=== PATIENT | female | born 2000 | race Caucasian/White ===

== ENCOUNTER 2020-07-22 12:31 | Emergency (ER) | payer MEDICAID ==
--- NOTE | 2020-07-22 14:11 | EDM.PDOC ---
ED HPI GENERAL MEDICAL PROBLEM - General Chief Complaint: General Stated Complaint: PULLED MUSCLE, 28 WEEKS Time Seen by Provider: 07/22/20 12:56 Source of Information: Reports: Patient History Limitations: Reports: No Limitations - History of Present Illness INITIAL COMMENTS - FREE TEXT/NARRATIVE: HISTORY AND PHYSICAL: History of present illness: Patient is a 20-year-old female who presents emergency room today with concern of lower abdominal pain/discomfort in . Patient states she is approximately 28 weeks in gestation and 2 to 3 days ago she was walking down the stairs and was wearing socks on a wooden floor. Patient states she slipped and landed directly on her buttocks. Patient states since she has had lower abdominal pain/pelvic pain. Patient states that her pain has worsened since the fall so she came to the emergency room to be evaluated. She states that she follows with Dr. Kidd at [facility] dates that she has not called the clinic to let them know that she has fallen or having any pain or symptoms. Patient denies fever, chills, chest pain, shortness of breath, or cough. Denies headache, neck stiff ness, change in vision, syncope, or near syncope. Denies nausea, vomiting, diarrhea, constipation, or dysuria. Has not noted any blood in urine or stool. Patient has been eating and drinking appropriately. Review of systems: As per history of present illness and below otherwise all systems reviewed and negative. Past medical history: As per history of present illness and as reviewed below otherwise noncontributory. Surgical history: As per history of present illness and as reviewed below otherwise noncontributory. Social history: See social history for further information Family history: As per history of present illness and as reviewed below otherwise noncontributory. Physical exam: General: Patient is alert, oriented, and in no acute distress. Patient laying comfortably on exam table. Mildly tachycardic otherwise vitally stable and reviewed by me. HEENT: Atraumatic, normocephalic, pupils equal and reactive bilaterally, negative for conjunctival pallor or scleral icterus, mucous membranes moist, TMs normal bilaterally, throat clear, neck supple, nontender, trachea midline. No drooling or trismus noted. No meningeal signs. No hot potato voice noted. Lungs: Clear to auscultation, breath sounds equal bilaterally, chest nontender. Heart: S1S2, regular rate and rhythm without overt murmur Abdomen: Soft, nondistended, mild-moderate suprapubic tenderness to palpation. Negative for masses or hepatosplenomegaly. Negative for costovertebral tenderness. Pelvis: Stable nontender. Genitourinary: Deferred. Rectal: Deferred. Skin: Intact, warm, dry. No lesions or rashes noted. Extremities: Gravid, uterus 8cm above umbilicus. Atraumatic, negative for cords or calf pain. Neurovascular unremarkable. Neuro: Awake, alert, oriented. Cranial nerves II through XII unremarkable. Cerebellum unremarkable. Motor and sensory unremarkable throughout. Exam nonfocal. Notes: heart tones at bedside 155. During nursing triage, patient did not express abdominal pain to nursing staff and was vague about her symptoms on triage. Because of this, patient was in waiting room for 80 minutes prior to being roomed. On my exam, she does have lower abdominal/pelvic pain. I quickly performed a bedside FHT which were 155 and call made to labor and delivery for additional treatment / monitoring as patient is 28 weeks gestation. Voices understanding and is agreeable to plan of care. Denies any further questions or concerns at this time. Diagnostics: None Therapeutics: None Impression: Lower abdominal pain in , 28 weeks Plan: Patient transferred to labor and delivery for additional evaluation/monitoring Definitive disposition and diagnosis as appropriate pending reevaluation and review of above. 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 ED EXAM, GENERAL - Physical Exam Exam: See Below (see dictation) Course - Vital Signs Last Recorded V/S: Last Vital Signs Temp 98.6 F 07/22/20 13:51 Pulse 114 H 07/22/20 13:51 Resp 17 07/22/20 13:51 BP 128/70 07/22/20 13:51 Pulse Ox 96 07/22/20 13:51 Departure - Departure Time of Disposition: 14:30 Disposition: Still A Patient 30 Clinical Impression: Abdominal pain during Qualifiers: Trimester: second trimester Qualified Code(s): O26.892 - Other specified related conditions, second trimester - Discharge Information Referrals: PCP,None [Primary Care Provider] - Forms: ED Department Discharge Additional Instructions: Patient was transferred immediately to labor and delivery for additional monitoring/evaluation Sepsis Event Note (ED) - Evaluation Sepsis Screening Result: No Definite Risk - Focused Exam Vital Signs: Vital Signs Temp Pulse Resp BP Pulse Ox 07/22/20 13:51 98.6 F 114 H 17 128/70 96
== END 2020-07-22 14:08 | disposition still patient (30) ==
LOC: MW.ED 12:31
DX: O99.891 Other specified diseases and conditions complicating pregnancy (principal); R10.30 Lower abdominal pain, unspecified; Z3A.28 28 weeks gestation of pregnancy; Z88.0 Allergy status to penicillin
CPT/HCPCS: 99283

== ENCOUNTER 2020-10-04 16:59 | Inpatient (IN) | payer MEDICAID ==
[2020-10-04] MEDS ORDERED: Sodium Chloride 0.9% 2.5 ML Syringe FLUSH PRN (18:11)
[2020-10-04] MEDS ORDERED: Sodium Chloride 0.9% 10 ML Syringe FLUSH PRN (18:11)
[2020-10-04] MEDS ORDERED: Butorphanol 1 MG/ML SDV IVPUSH PRN (18:11)
[2020-10-04] MEDS ORDERED: Water For Irrigation,Sterile 1,000 ML Container IRR PRN (18:11)
[2020-10-04] MEDS ORDERED: Lidocaine 1% 50 ML MDV INJECT PRN (18:11)
[2020-10-04] MEDS ORDERED: Tranexamic Acid 1,000 MG in Sodium Chloride 0.9% 100 ML IV PRN (18:11)
[2020-10-04] MEDS ORDERED: Nalbuphine 10 MG/1 ML Vial IVPUSH PRN (18:11)
[2020-10-04] MEDS ORDERED: Sodium Chloride 0.9% 10 ML SDV IV PRN (18:11)
[2020-10-04] MEDS ORDERED: Misoprostol 200 MCG Tab PO PRN (18:11)
[2020-10-04] MEDS ORDERED: Methylergonovine 0.2 MG/1 ML Amp IM PRN (18:11)
[2020-10-04] MEDS ORDERED: Carboprost Tromethamine 250 MCG/1 ML Amp IM PRN (18:11)
[2020-10-04] MEDS ORDERED: Oxytocin/0.9 % Sodium Chloride 30 UNIT/500 ML BAG IV SCH ×2 (18:15→18:30)
[2020-10-04] MEDS ORDERED: Misoprostol 25 MCG (1/4 of 100 MCG) Tab VAG PRN (18:21)
[2020-10-04] MEDS ORDERED: Terbutaline 1 MG/ML SDV SUBCUT PRN (18:21)
[2020-10-04] MEDS ORDERED: Vancomycin 1.5 GM in Sodium Chloride 0.9% 500 ML IV SCH (19:00)
[2020-10-04] MEDS: Lactated Ringers 1,000 ML IV SCH (19:05)
[2020-10-04] MEDS: Misoprostol 25 MCG (1/4 of 100 MCG) Tab VAG PRN (20:29)
[2020-10-04] MEDS ORDERED: diphenhydrAMINE 50 MG Cap PO PRN (22:45)
[2020-10-05] MEDS: Lactated Ringers 1,000 ML IV SCH ×4 (00:42→17:44)
[2020-10-05] MEDS: Misoprostol 25 MCG (1/4 of 100 MCG) Tab VAG PRN (04:32)
[2020-10-05] MEDS ORDERED: Oxytocin/0.9 % Sodium Chloride 30 UNIT/500 ML BAG ONE (08:06)
--- NOTE | 2020-10-05 08:40 | PCM.LDHP ---
L&D History of Present Illness - General Date of Service: 10/05/20 Admit Problem/Dx: Patient Status Order with Admit Dx/Problem 10/04/20 18:12 Patient Status [ADT] Routine Admission Diagnosis/Problem Admission Diagnosis/Problem Source of Information: Patient History Limitations: Reports: No Limitations - History of Present Illness Introduction:: 20 year old G1 at 38w3d (CHRISTINE 10/16/2020 by 10w4d US) presented to Labor and Delivery last evening for induction of labor due to IUGR based on abdominal circumference <10%ile. She is resting in bed this morning, reports cramping increasing after 3rd dose of Cytotec. Reports good movement. Denies leaking fluid or vaginal bleeding. - Related Data Allergies/Adverse Reactions: Allergies Allergy/AdvReac Type Severity Reaction Status Date / Time Penicillins Allergy Rash Verified 07/22/20 14:27 Home Medications: Home Meds No122/Iron/Folic Acid [ Multi Tablet] 1 tab PO DAILY 07/22/20 [History] Past Medical History HEENT History: Reports: Impaired Vision Cardiovascular History: Reports: None Respiratory History: Reports: None Gastrointestinal History: Reports: None Genitourinary History: Reports: None CREEL HAND History: Reports: Musculoskeletal History: Reports: Fracture Neurological History: Reports: None Psychiatric History: Reports: Anxiety, Panic Attack Endocrine/Metabolic History: Reports: None Hematologic History: Reports: Anemia Oncologic (Cancer) History: Reports: None Dermatologic History: Reports: None - Infectious Disease History Infectious Disease History: Reports: None - Past Surgical History HEENT Surgical History: Reports: None GI Surgical History: Reports: None Female Surgical History: Reports: None Musculoskeletal Surgical History: Reports: None Social & Family History - Family History Family Medical History: No Pertinent Family History HEENT: Reports: Impaired Vision Cardiac: Reports: None Respiratory: Reports: COPD GI: Reports: None : Reports: None OBGYN: Reports: Musculoskeletal: Reports: Arthritis Neurological: Reports: None Psychiatric: Reports: Anxiety, OCD, Panic Attack Endocrine/Metabolic: Reports: None Hematologic: Reports: None Immunologic: Reports: None Dermatologic: Reports: None Oncologic: Reports: None - Tobacco Use Tobacco Use Status *Q: Former Tobacco User Used Tobacco, but Quit: Yes Month/Year Tobacco Last Used: 04/09 Second Hand Smoke Exposure: No - Caffeine Use Caffeine Use: Reports: Coffee, Soda, Tea - Recreational Drug Use Recreational Drug Use: Yes Drug Use in Last 12 Months: Yes Recreational Drug Type: Reports: Marijuana/Hashish Recreational Drug Use Frequency: Not Used In Over 6 Months H&P Review of Systems - Review of Systems: Review Of Systems: See Below General: Reports: No Symptoms HEENT: Reports: No Symptoms Pulmonary: Reports: No Symptoms Cardiovascular: Reports: No Symptoms Gastrointestinal: Reports: Abdominal Pain Genitourinary: Reports: No Symptoms Musculoskeletal: Reports: Back Pain Skin: Reports: No Symptoms Psychiatric: Reports: No Symptoms Neurological: Reports: No Symptoms Hematologic/Lymphatic: Reports: No Symptoms Immunologic: Reports: No Symptoms L&D Exam - Exam Exam: See Below - Vital Signs Weight: 159 lb - OB Specific Contraction Intensity: Irritability Movement: Active Heart Tones: Present Heart Tones per Min: 140 Heart Rate (FHR) Variability: Moderate (6-25 bmp) Presentation: Vertex Estimated Weight: 2840 grams by ultrasound at 37w3d - Stanton Score Stanton Score Cervix Position: Midposition Stanton Score Consistency: Medium Stanton Score Effacement: 51-70% Stanton Score Dilation: 3-4 cm Stanton Score Infant's Station: -2 Stanton Score Total: 7 - Exam General: Alert Lungs: Normal Respiratory Effort Cardiovascular: Regular Rate GI/Abdominal Exam: Soft, Non-Tender Genitourinary: Normal external exam Back Exam: Full Range of Motion Extremities: Normal Range of Motion, Non-Tender, No Pedal Edema Skin: Warm, Dry, Intact Psychiatric: Normal Mood - Patient Data Lab Results Last 24 hrs: Laboratory Results - last 24 hr 10/04/20 10/04/20 Range/Units 18:00 18:00 WBC 10.44 (4.0-11.0) K/uL RBC 3.52 L (4.30-5.90) M/uL Hgb 9.7 L (12.0-16.0) g/dL Hct 30.1 L (36.0-46.0) % MCV 85.5 (80.0-98.0) fL MCH 27.6 (27.0-32.0) pg MCHC 32.2 (31.0-37.0) g/dL RDW Std Deviation 41.6 (28.0-62.0) fl RDW Coeff of Vashti 13 (11.0-15.0) % Plt Count 292 (150-400) K/uL MPV 11.40 (7.40-12.00) fL Nucleated RBC % 0.0 /100WBC Nucleated RBCs # 0 K/uL Blood Type A POSITIVE Antibody Screen NEGATIVE Result Diagrams: 10/04/20 18:00 Problem List Initiated/Reviewed/Updated: Yes Orders Last 24hrs: Active Orders 24 hr Category Date Time Status Patient Status [ADT] Routine ADT 10/04/20 18:12 Active Bedrest Bathroom Privileges [RC] ASDIRECTED Care 10/04/20 18:21 Active Communication Order [RC] ASDIRECTED Care 10/04/20 18:21 Active Communication Order [RC] ASDIRECTED Care 10/04/20 18:21 Active Communication Order [RC] ASDIRECTED Care 10/04/20 18:21 Active Heart Tones [RC] CONTINUOUS Care 10/04/20 18:12 Active Non Stress Test [RC] PER UNIT ROUTINE Care 10/04/20 18:12 Active May Shower [RC] ASDIRECTED Care 10/04/20 18:12 Active Notify Provider [RC] PRN Care 10/04/20 18:12 Active Notify Provider [RC] PRN Care 10/04/20 18:21 Active Notify Provider [RC] PRN Care 10/04/20 18:21 Active Notify Provider [RC] STAT Care 10/04/20 18:21 Active Up ad Jojo [RC] ASDIRECTED Care 10/04/20 18:12 Active Vaginal Exam [RC] PRN Care 10/04/20 18:12 Active Vaginal Exam [RC] PRN Care 10/04/20 18:21 Active Vital Signs [RC] PER UNIT ROUTINE Care 10/04/20 18:12 Active Vital Signs [RC] PER UNIT ROUTINE Care 10/04/20 18:21 Active Regular Diet [DIET] Diet 10/04/20 Dinner Active RPR (SYPHILIS SERO) W/ RFLX [REF] Routine Lab 10/04/20 18:00 Received Butorphanol [Stadol] Med 10/04/20 18:11 Active 1 mg IVPUSH Q1H PRN Carboprost Tromethamine [Hemabate DS] Med 10/04/20 18:11 Active 250 mcg IM ASDIRECTED PRN Lactated Ringers [Ringers, Lactated] 1,000 ml Med 10/04/20 18:15 Active IV ASDIRECTED Lidocaine 1% [Xylocaine 1%] Med 10/04/20 18:11 Active 50 ml INJECT ONETIME PRN Methylergonovine [Methergine] Med 10/04/20 18:11 Active 0.2 mg IM ASDIRECTED PRN Nalbuphine [Nubain] Med 10/04/20 18:11 Active 10 mg IVPUSH Q1H PRN Oxytocin/0.9 % Sodium Chloride [Oxytocin 30 Unit/500 ML Med 10/04/20 18:15 Active -NS] 30 unit in 500 ml IV TITRATE Oxytocin/0.9 % Sodium Chloride [Oxytocin 30 Unit/500 ML Med 10/04/20 18:30 Active -NS] 30 unit in 500 ml IV TITRATE Pharmacy to Dose - Vancomycin Med 10/04/20 18:30 Active 1 dose .XX Q8H Sodium Chloride 0.9% [Normal Saline] Med 10/04/20 18:11 Active 10 ml IV ASDIRECTED PRN Sodium Chloride 0.9% [Saline Flush] Med 10/04/20 18:11 Active 10 ml FLUSH ASDIRECTED PRN Sodium Chloride 0.9% [Saline Flush] Med 10/04/20 18:11 Active 2.5 ml FLUSH ASDIRECTED PRN Terbutaline [Brethine] Med 10/04/20 18:21 Active 0.25 mg SUBCUT ASDIRECTED PRN Tranexamic Acid [Cyklokapron] 1,000 mg Med 10/04/20 18:11 Active Sodium Chloride 0.9% [Normal Saline] 100 ml IV ONETIME Vancomycin 1.5 gm Med 10/05/20 04:30 Active Sodium Chloride 0.9% [Normal Saline] 500 ml IV Q24H Water For Irrigation,Sterile [Sterile Water for Med 10/04/20 18:11 Active Irrigation] 1,000 ml IRR ASDIRECTED PRN diphenhydrAMINE [Benadryl] Med 10/04/20 22:45 Active 50 mg PO BEDTIME PRN miSOPROStoL [Cytotec] Med 10/04/20 18:11 Active 200 mcg PO ONETIME PRN miSOPROStoL [Cytotec] Med 10/04/20 18:21 Active 25 mcg VAG ONETIME PRN miSOPROStoL [Cytotec] Med 10/04/20 18:21 Active 25 mcg VAG Q4H PRN Scalp Electrode [WOMSER] Per Unit Routine Oth 10/04/20 18:12 Ordered Medication Administration Instruction [OM.PC] Q3H Oth 10/04/20 18:30 Ordered Peripheral IV Insertion Adult [OM.PC] Routine Oth 10/04/20 18:12 Ordered Resuscitation Status Routine Resus Stat 10/04/20 18:11 Ordered Medication Orders Butorphanol Tartrate (Butorphanol 1 Mg/Ml Sdv) 1 mg IVPUSH Q1H PRN PRN Reason: Pain Carboprost Tromethamine (Carboprost Tromethamine 250 Mcg/1 Ml Amp) 250 mcg IM ASDIRECTED PRN PRN Reason: Post Hemorrhage Diphenhydramine HCl (Diphenhydramine 50 Mg Cap) 50 mg PO BEDTIME PRN PRN Reason: Itching Last Admin: 10/04/20 22:59 Dose: 50 mg Documented by: RAJEEV Cosigned by: YANIRA Oxytocin/Sodium Chloride (Oxytocin 30 Unit/500 Ml-Ns) 30 unit in 500 mls @ 500 mls/hr IV TITRATE BREANNA Tranexamic Acid 1,000 mg/ (Sodium Chloride) 110 mls @ 660 mls/hr IV ONETIME PRN PRN Reason: Bleeding Lactated Ringer's (Ringers, Lactated) 1,000 mls @ 150 mls/hr IV ASDIRECTED BREANNA Last Admin: 10/05/20 00:42 Dose: 150 mls/hr Documented by: RAJEEV Cosigned by: BOLSSAC Infusion: 10/04/20 20:34 Dose: 150 mls/hr Documented by: RAJEEV Cosigned by: TERRELLSSAC Infusion: 10/04/20 20:00 Dose: 150 mls/hr Documented by: RAJEEV Cosigned by: YANIRA Admin: 10/04/20 19:05 Dose: 999 mls/hr Documented by: AL Oxytocin/Sodium Chloride (Oxytocin 30 Unit/500 Ml-Ns) 30 unit in 500 mls @ 2 mls/hr IV TITRATE BREANNA; Protocol Vancomycin HCl 1.5 gm/ Sodium (Chloride) 500 mls @ 333.333 mls/hr IV Q24H BREANNA Lidocaine HCl (Lidocaine 1% 50 Ml Mdv) 50 ml INJECT ONETIME PRN PRN Reason: Laceration repair Methylergonovine Maleate (Methylergonovine 0.2 Mg/1 Ml Amp) 0.2 mg IM ASDIRECTED PRN PRN Reason: Post Hemorrhage Misoprostol (Misoprostol 200 Mcg Tab) 200 mcg PO ONETIME PRN PRN Reason: Post Hemorrhage Misoprostol (Misoprostol 25 Mcg (1/4 Of 100 Mcg) Tab) 25 mcg VAG ONETIME PRN PRN Reason: Cervical Ripening Last Admin: 10/05/20 04:32 Dose: 25 mcg Documented by: RAJEEV Cosigned by: YANIRA Admin: 10/04/20 20:29 Dose: 25 mcg Documented by: YANIRA Misoprostol (Misoprostol 25 Mcg (1/4 Of 100 Mcg) Tab) 25 mcg VAG Q4H PRN PRN Reason: Cervical Ripening Last Admin: 10/05/20 00:39 Dose: 25 mcg Documented by: RAJEEV Cosigned by: YANIRA Nalbuphine HCl (Nalbuphine 10 Mg/1 Ml Vial) 10 mg IVPUSH Q1H PRN PRN Reason: Pain (severe 7-10) Sodium Chloride (Sodium Chloride 0.9% 10 Ml Syringe) 10 ml FLUSH ASDIRECTED PRN PRN Reason: Keep Vein Open Sodium Chloride (Sodium Chloride 0.9% 2.5 Ml Syringe) 2.5 ml FLUSH ASDIRECTED PRN PRN Reason: Keep Vein Open Sodium Chloride (Sodium Chloride 0.9% 10 Ml Sdv) 10 ml IV ASDIRECTED PRN PRN Reason: IV Use Sterile Water (Water For Irrigation,Sterile 1,000 Ml Container) 1,000 ml IRR ASDIRECTED PRN PRN Reason: delivery Terbutaline Sulfate (Terbutaline 1 Mg/Ml Sdv) 0.25 mg SUBCUT ASDIRECTED PRN PRN Reason: Tacysystole Vancomycin HCl (Pharmacy To Dose - Vancomycin) 1 dose .XX Q8H [facility] Assessment/Plan Comment:: 20 year old G1 at 38w3d (CHRISTINE 10/16/2020 by 10w4d US) for induction of labor due to IUGR * Rh positive, rubella immune * GBS positive with allergy to Penicillin (rash), resistant to clindamycin; reactive to IV vancomycin. Will hold AROM until closer to active labor. * May receive epidural PRN pain * s/p 3 doses of Cytotec * Will initiate Pitocin for labor augmentation
[2020-10-05] MEDS ORDERED: fentaNYL 100 MCG/2 ML SDV ONE (12:22)
[2020-10-05] MEDS ORDERED: Bupivicaine/fentaNYL/NS 250 ML ONE (12:23)
--- NOTE | 2020-10-05 12:45 | PCM.PREANE ---
Preanesthetic Assessment - Anesthesia/Transfusion/Family Hx Anesthesia History: No Prior Anesthesia Family History of Anesthesia Reaction: No Transfusion History: No Prior Transfusion(s) Intubation History: Unknown - Review of Systems General: No Symptoms Pulmonary: No Symptoms Cardiovascular: No Symptoms Gastrointestinal: Abdominal Pain (labor pain) Neurological: No Symptoms Other: Reports: None - Physical Assessment Height: 5 ft 6 in Weight: 72.121 kg ASA Class: 2 Mental Status: Alert & Oriented x3 Airway Class: Mallampati = 1 Dentition: Reports: Normal Dentition Thyro-Mental Finger Breadths: 3 Mouth Opening Finger Breadths: 2 ROM/Head Extension: Full Lungs: Clear to Auscultation, Normal Respiratory Effort Cardiovascular: Regular Rate, Regular Rhythm - Lab Values: Laboratory Last Values WBC 10.44 K/uL (4.0-11.0) 10/04/20 18:00 RBC 3.52 M/uL (4.30-5.90) L 10/04/20 18:00 Hgb 9.7 g/dL (12.0-16.0) L 10/04/20 18:00 Hct 30.1 % (36.0-46.0) L 10/04/20 18:00 MCV 85.5 fL (80.0-98.0) 10/04/20 18:00 MCH 27.6 pg (27.0-32.0) 10/04/20 18:00 MCHC 32.2 g/dL (31.0-37.0) 10/04/20 18:00 RDW Std Deviation 41.6 fl (28.0-62.0) 10/04/20 18:00 RDW Coeff of Vashti 13 % (11.0-15.0) 10/04/20 18:00 Plt Count 292 K/uL (150-400) 10/04/20 18:00 MPV 11.40 fL (7.40-12.00) 10/04/20 18:00 Nucleated RBC % 0.0 /100WBC 10/04/20 18:00 Nucleated RBCs # 0 K/uL 10/04/20 18:00 Blood Type A POSITIVE 10/04/20 18:00 Antibody Screen NEGATIVE 10/04/20 18:00 - Allergies Allergies/Adverse Reactions: Allergies Allergy/AdvReac Type Severity Reaction Status Date / Time Penicillins Allergy Rash Verified 07/22/20 14:27 - Blood Blood Available: No - Anesthesia Plan Pre-Op Medication Ordered: None - Acknowledgements Anesthesia Type Planned: Epidural Pt an Appropriate Candidate for the Planned Anesthesia: Yes Alternatives and Risks of Anesthesia Discussed w Pt/Guardian: Yes Pt/Guardian Understands and Agrees with Anesthesia Plan: Yes PreAnesthesia Questionnaire HEENT History: Reports: Impaired Vision Cardiovascular History: Reports: None Respiratory History: Reports: None Gastrointestinal History: Reports: None Genitourinary History: Reports: None 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 History: Reports: Fracture Neurological History: Reports: None Psychiatric History: Reports: Anxiety, Panic Attack Endocrine/Metabolic History: Reports: None Hematologic History: Reports: Anemia Oncologic (Cancer) History: Reports: None Dermatologic History: Reports: None - Infectious Disease History Infectious Disease History: Reports: None - Past Surgical History HEENT Surgical History: Reports: None GI Surgical History: Reports: None Female Surgical History: Reports: None Musculoskeletal Surgical History: Reports: None - SUBSTANCE USE Tobacco Use Status *Q: Former Tobacco User Tobacco Use Within Last Twelve Months: Vaping Second Hand Smoke Exposure: No Recreational Drug Use History: Yes Recreational Drug Type: Reports: Marijuana/Hashish - HOME MEDS Home Medications: Home Meds No122/Iron/Folic Acid [ Multi Tablet] 1 tab PO DAILY 07/22/20 [History] - CURRENT (IN HOUSE) MEDS Current Meds: Current Medications Butorphanol Tartrate (Butorphanol 1 Mg/Ml Sdv) 1 mg IVPUSH Q1H PRN PRN Reason: Pain Carboprost Tromethamine (Carboprost Tromethamine 250 Mcg/1 Ml Amp) 250 mcg IM ASDIRECTED PRN PRN Reason: Post Hemorrhage Diphenhydramine HCl (Diphenhydramine 50 Mg Cap) 50 mg PO BEDTIME PRN PRN Reason: Itching Last Admin: 10/04/20 22:59 Dose: 50 mg Documented by: Oxytocin/Sodium Chloride (Oxytocin 30 Unit/500 Ml-Ns) 30 unit in 500 mls @ 500 mls/hr IV TITRATE BREANNA Tranexamic Acid 1,000 mg/ (Sodium Chloride) 110 mls @ 660 mls/hr IV ONETIME PRN PRN Reason: Bleeding Lactated Ringer's (Ringers, Lactated) 1,000 mls @ 150 mls/hr IV ASDIRECTED BREANNA Last Admin: 10/05/20 11:59 Dose: 999 mls/hr Documented by: Oxytocin/Sodium Chloride (Oxytocin 30 Unit/500 Ml-Ns) 30 unit in 500 mls @ 2 mls/hr IV TITRATE [facility]; Protocol Last Titration: 10/05/20 10:50 Dose: 8 munits/min, 8 mls/hr Documented by: Vancomycin HCl 1.5 gm/ Sodium (Chloride) 500 mls @ 333.333 mls/hr IV Q24H [facility] Lidocaine HCl (Lidocaine 1% 50 Ml Mdv) 50 ml INJECT ONETIME PRN PRN Reason: Laceration repair Methylergonovine Maleate (Methylergonovine 0.2 Mg/1 Ml Amp) 0.2 mg IM ASDIRECTED PRN PRN Reason: Post Hemorrhage Misoprostol (Misoprostol 200 Mcg Tab) 200 mcg PO ONETIME PRN PRN Reason: Post Hemorrhage Misoprostol (Misoprostol 25 Mcg (1/4 Of 100 Mcg) Tab) 25 mcg VAG ONETIME PRN PRN Reason: Cervical Ripening Last Admin: 10/05/20 04:32 Dose: 25 mcg Documented by: Misoprostol (Misoprostol 25 Mcg (1/4 Of 100 Mcg) Tab) 25 mcg VAG Q4H PRN PRN Reason: Cervical Ripening Last Admin: 10/05/20 00:39 Dose: 25 mcg Documented by: Nalbuphine HCl (Nalbuphine 10 Mg/1 Ml Vial) 10 mg IVPUSH Q1H PRN PRN Reason: Pain (severe 7-10) Sodium Chloride (Sodium Chloride 0.9% 10 Ml Syringe) 10 ml FLUSH ASDIRECTED PRN PRN Reason: Keep Vein Open Sodium Chloride (Sodium Chloride 0.9% 2.5 Ml Syringe) 2.5 ml FLUSH ASDIRECTED PRN PRN Reason: Keep Vein Open Sodium Chloride (Sodium Chloride 0.9% 10 Ml Sdv) 10 ml IV ASDIRECTED PRN PRN Reason: IV Use Sterile Water (Water For Irrigation,Sterile 1,000 Ml Container) 1,000 ml IRR ASDIRECTED PRN PRN Reason: delivery Terbutaline Sulfate (Terbutaline 1 Mg/Ml Sdv) 0.25 mg SUBCUT ASDIRECTED PRN PRN Reason: Tacysystole Vancomycin HCl (Pharmacy To Dose - Vancomycin) 1 dose .XX Q8H [facility] Discontinued Medications Fentanyl (Fentanyl 100 Mcg/2 Ml Sdv) Confirm Administered Dose 100 mcg .ROUTE .STK-MED ONE Stop: 10/05/20 12:23 Vancomycin HCl 1 gm/ Sodium (Chloride) 250 mls @ 166.667 mls/hr IV Q8H [facility] Vancomycin HCl 1.5 gm/ Sodium (Chloride) 500 mls @ 333.333 mls/hr IV Q8H [facility] Vancomycin HCl 1.5 gm/ Sodium (Chloride) 250 mls @ 166.667 mls/hr IV Q8H [facility] Stop: 10/04/20 22:44 Last Admin: 10/04/20 21:46 Dose: 166.667 mls/hr Documented by: Oxytocin/Sodium Chloride (Oxytocin 30 Unit/500 Ml-Ns) Confirm Administered Dose 30 unit in 500 mls @ as directed .ROUTE .STK-MED ONE Stop: 10/05/20 08:07 Fentanyl/Bupivacaine HCl (Fentanyl/Bupivacaine/Ns 2 Mcg-0.125% 250 Ml) Confirm Administered Dose 250 mls @ as directed .ROUTE .STK-MED ONE Stop: 10/05/20 12:24
[2020-10-05] MEDS ORDERED: Lidocaine 1% 50 ML MDV ONE (18:30)
[2020-10-05] MEDS ORDERED: Bisacodyl 10 MG Supp RECTAL PRN (19:05)
[2020-10-05] MEDS ORDERED: oxyCODONE 5 MG Tab PO PRN (19:05)
[2020-10-05] MEDS ORDERED: Acetaminophen 500 MG Tab PO PRN ×2 (19:05)
[2020-10-05] MEDS ORDERED: Benzocaine/Menthol 20%-0.5% Spray 78 GM Cannister TOP PRN (19:05)
[2020-10-05] MEDS ORDERED: Ibuprofen 400 MG Tab PO PRN (19:05)
[2020-10-05] MEDS ORDERED: Witch Hazel Medicated Pads 40/Jar TOP PRN (19:05)
[2020-10-05] MEDS ORDERED: Lanolin 100% Cream 7 GM Tube TOP PRN (19:05)
[2020-10-05] MEDS: Docusate Sodium 100 MG Cap PO PRN (20:52)
--- NOTE | 2020-10-05 22:45 | OR ---
SURGEON: Jun Thomas MD DATE OF PROCEDURE: 10/05/2020 INDICATION FOR PROCEDURE: A 20-year-old, G1, P0, at 38 weeks and 3 days, admitted for induction of labor due to IUGR. The baby had abdominal circumference was less than 4th percentile. She had weekly testing with umbilical artery Dopplers and BPP which was reassuring. She is GBS positive, which is resistant to clindamycin. She has allergies to penicillin. She received the 1st dose of vancomycin for GBS prophylaxis, but she had a reaction to vancomycin with a diffuse rash. Therefore, she did not receive any additional doses. The rash did improve with some Benadryl and hydration. She received 3 doses of Cytotec for induction of labor. She was 3 cm and pitocin was started. She received an epidural with good pain control. She had intermittent Cat 2 tracing with late decels, which responded after pit rest and repositioning. She continued to make cervical change and became fully dilated. She began pushing with contractions. PREOPERATIVE DIAGNOSES: 1. Carrasco intrauterine at 38 weeks and 3 days. 2. Intrauterine growth restriction. POSTOPERATIVE DIAGNOSES: 1. Carrasco intrauterine at 38 weeks and 3 days. 2. Intrauterine growth restriction. PROCEDURES PERFORMED: Normal spontaneous vaginal delivery, repair of right mediolateral episiotomy. ANESTHESIOLOGIST: Dr. Samy Baca. ANESTHESIA: Epidural. FINDINGS: Viable male infant, score of 6 and 9, weight of 2530g. Loose nuchal cord x1. ESTIMATED BLOOD LOSS: 250 mL. DESCRIPTION OF PROCEDURE: The patient pushed with contractions for approximately 30 minutes. The head was , however, there was a period of bradycardia with heart rate of 90s lasting about 5 minutes. In order to facilitate the delivery, a right mediolateral episiotomy was made. The head delivered with next push in occiput anterior position, restituted ROT. Anterior shoulder delivered easily followed by posterior shoulder and remaining body. Loose nuchal cord was reduced after delivery. The baby was placed on maternal chest and evaluated by awaiting nursery staff. The baby was initially pale and did not cry, but was moving all extremities. After resuscitation, the baby did began to turn pink and cry vigorously. The umbilical cord gases were obtained. The placenta was removed with gentle traction on the umbilical cord. It was examined and found to be intact with 3- vessel cord. It was sent to pathology. Perineum was examined and she had a second-degree laceration from the episiotomy. She did not have complete pain control, 10 mL of 1% lidocaine with epi was injected for local anesthesia. The laceration was repaired with 3-0 Vicryl in usual fashion. Hemostasis was confirmed. Fundal massage was performed. The uterus was firm and below the umbilicus and the bleeding was light. The patient tolerated the procedure well, was given care instructions. АНДРЕЙ RICHARD /[id number] MTDD
--- NOTE | 2020-10-05 23:49 | PCM48HPAN ---
Post Anesthesia Note - EVALUATION WITHIN 48HRS OF ANESTHETIC Vital Signs in Normal Range: Yes Patient Participated in Evaluation: Yes Respiratory Function Stable: Yes Airway Patent: Yes Cardiovascular Function Stable: Yes Hydration Status Stable: Yes Pain Control Satisfactory: Yes Nausea and Vomiting Control Satisfactory: Yes Mental Status Recovered: Yes - COMMENTS/OBSERVATIONS Free Text/Narrative:: Sitting up eating and denies any complaints at this time.
--- NOTE | 2020-10-06 08:05 | PCM.PNPP ---
- General Info Date of Service: 10/06/20 Admission Dx/Problem (Free Text): Patient Status Order with Admit Dx/Problem 10/04/20 18:12 Patient Status [ADT] Routine Admission Diagnosis/Problem Admission Diagnosis/Problem Subjective Update: Ambulating about room during rounds. Reports pain well controlled with Ibuprofen. Lochia decreasing. Ambulating and voiding without difficulty. Tolerating regular diet. Has attempted but has a poor latch. Will work on pumping today. Denies lightheadedness, dizziness, palpitations, SOA or CP. - General Info Date of Service: 10/06/20 - Patient Data Vital Signs - Most Recent: Last Vital Signs Temp 98.6 F 10/06/20 04:00 Pulse 86 10/06/20 04:00 Resp 16 10/06/20 04:00 BP 128/57 L 10/06/20 04:00 Pulse Ox 96 10/06/20 04:00 Weight - Most Recent: 159 lb Lab Results - Last 24 Hours: Laboratory Results - last 24 hr 10/05/20 10/05/20 10/06/20 Range/Units 18:21 18:21 05:36 Hgb 9.3 L (12.0-16.0) g/dL Hct 28.5 L (36.0-46.0) % Cord ABG pH 7.182 (7.18-7.38) Cord ABG Base Excess -7 (-10--2) Cord VBG pH 7.220 L (7.25-7.45) Cord VBG Base Excess -6 (-10--2) Med Orders - Current: Current Medications Acetaminophen (Acetaminophen 500 Mg Tab) 500 mg PO Q4H PRN PRN Reason: Pain Acetaminophen (Acetaminophen 500 Mg Tab) 1,000 mg PO Q4H PRN PRN Reason: Pain Benzocaine/Menthol (Benzocaine/Menthol 20%-0.5% [place] 78 Gm Cannister) 78 gm TOP ASDIRECTED PRN PRN Reason: Perineal Comfort Measure Last Admin: 10/05/20 20:53 Dose: 1 spray Documented by: Bisacodyl (Bisacodyl 10 Mg Supp) 10 mg RECTAL ONETIME PRN PRN Reason: Constipation Diphenhydramine HCl (Diphenhydramine 50 Mg Cap) 50 mg PO BEDTIME PRN PRN Reason: Itching Last Admin: 10/04/20 22:59 Dose: 50 mg Documented by: Docusate Sodium (Docusate Sodium 100 Mg Cap) 100 mg PO BID PRN PRN Reason: Constipation Last Admin: 10/05/20 20:52 Dose: 100 mg Documented by: Emollient Ointment (Lanolin 100% Cream 7 Gm Tube) 0 gm TOP ASDIRECTED PRN PRN Reason: Sore Nipples Last Admin: 10/05/20 20:53 Dose: 1 gm Documented by: Oxytocin/Sodium Chloride (Oxytocin 30 Unit/500 Ml-Ns) 30 unit in 500 mls @ 2 mls/hr IV TITRATE [facility]; Protocol Last Titration: 10/05/20 17:40 Dose: 2 munits/min, 2 mls/hr Documented by: Vancomycin HCl 1.5 gm/ Sodium (Chloride) 500 mls @ 333.333 mls/hr IV Q24H [facility] Ibuprofen (Ibuprofen 400 Mg Tab) 400 mg PO Q4H PRN PRN Reason: Pain Ibuprofen (Ibuprofen 800 Mg Tab) 800 mg PO Q6H PRN PRN Reason: Pain Misoprostol (Misoprostol 25 Mcg (1/4 Of 100 Mcg) Tab) 25 mcg VAG ONETIME PRN PRN Reason: Cervical Ripening Last Admin: 10/05/20 04:32 Dose: 25 mcg Documented by: Misoprostol (Misoprostol 25 Mcg (1/4 Of 100 Mcg) Tab) 25 mcg VAG Q4H PRN PRN Reason: Cervical Ripening Last Admin: 10/05/20 00:39 Dose: 25 mcg Documented by: Oxycodone HCl (Oxycodone 5 Mg Tab) 5 mg PO Q2H PRN PRN Reason: Pain Sodium Chloride (Sodium Chloride 0.9% 10 Ml Syringe) 10 ml FLUSH ASDIRECTED PRN PRN Reason: Keep Vein Open Sodium Chloride (Sodium Chloride 0.9% 2.5 Ml Syringe) 2.5 ml FLUSH ASDIRECTED PRN PRN Reason: Keep Vein Open Sodium Chloride (Sodium Chloride 0.9% 10 Ml Sdv) 10 ml IV ASDIRECTED PRN PRN Reason: IV Use Terbutaline Sulfate (Terbutaline 1 Mg/Ml Sdv) 0.25 mg SUBCUT ASDIRECTED PRN PRN Reason: Tacysystole Vancomycin HCl (Pharmacy To Dose - Vancomycin) 1 dose .XX Q8H [facility] Witch [place]lie (Witch [place]lie Medicated Pads 40/Jar) 1 pad TOP ASDIRECTED PRN PRN Reason: comfort care Last Admin: 10/05/20 20:54 Dose: 1 pad Documented by: Discontinued Medications Butorphanol Tartrate (Butorphanol 1 Mg/Ml Sdv) 1 mg IVPUSH Q1H PRN PRN Reason: Pain Carboprost Tromethamine (Carboprost Tromethamine 250 Mcg/1 Ml Amp) 250 mcg IM ASDIRECTED PRN PRN Reason: Post Hemorrhage Fentanyl (Fentanyl 100 Mcg/2 Ml Sdv) Confirm Administered Dose 100 mcg .ROUTE .[employer] ONE Stop: 10/05/20 12:23 Oxytocin/Sodium Chloride (Oxytocin 30 Unit/500 Ml-Ns) 30 unit in 500 mls @ 500 mls/hr IV TITRATE [facility] Tranexamic Acid 1,000 mg/ (Sodium Chloride) 110 mls @ 660 mls/hr IV ONETIME PRN PRN Reason: Bleeding Lactated Ringer's (Ringers, Lactated) 1,000 mls @ 150 mls/hr IV ASDIRECTED [facility] Last Admin: 10/05/20 17:44 Dose: 150 mls/hr Documented by: Vancomycin HCl 1 gm/ Sodium (Chloride) 250 mls @ 166.667 mls/hr IV Q8H [facility] Vancomycin HCl 1.5 gm/ Sodium (Chloride) 500 mls @ 333.333 mls/hr IV Q8H [facility] Vancomycin HCl 1.5 gm/ Sodium (Chloride) 250 mls @ 166.667 mls/hr IV Q8H [facility] Stop: 10/04/20 22:44 Last Admin: 10/04/20 21:46 Dose: 166.667 mls/hr Documented by: Oxytocin/Sodium Chloride (Oxytocin 30 Unit/500 Ml-Ns) Confirm Administered Dose 30 unit in 500 mls @ as directed .ROUTE .[employer] ONE Stop: 10/05/20 08:07 Fentanyl/Bupivacaine HCl (Fentanyl/Bupivacaine/Ns 2 Mcg-0.125% 250 Ml) Confirm Administered Dose 250 mls @ as directed .ROUTE .[employer] ONE Stop: 10/05/20 12:24 Lidocaine HCl (Lidocaine 1% 50 Ml Mdv) 50 ml INJECT ONETIME PRN PRN Reason: Laceration repair Lidocaine HCl (Lidocaine 1% 50 Ml Mdv) Confirm Administered Dose 50 ml .ROUTE .[employer] ONE Stop: 10/05/20 18:31 Methylergonovine Maleate (Methylergonovine 0.2 Mg/1 Ml Amp) 0.2 mg IM ASDIRECTED PRN PRN Reason: Post Hemorrhage Misoprostol (Misoprostol 200 Mcg Tab) 200 mcg PO ONETIME PRN PRN Reason: Post Hemorrhage Nalbuphine HCl (Nalbuphine 10 Mg/1 Ml Vial) 10 mg IVPUSH Q1H PRN PRN Reason: Pain (severe 7-10) Sterile Water (Water For Irrigation,Sterile 1,000 Ml Container) 1,000 ml IRR ASDIRECTED PRN PRN Reason: delivery - Interaction Infant Disposition, : [place] in Room with Family Infant Feeding: Attempted ; Nursed Fair/Poor, Bottle Fed Infant Support Person: Significant Other - Recovery Exam Fundal Tone: Firm Fundal Level: 1 Fingerbreadths Below Umbilicus Fundal Placement: Midline Lochia Amount: Small Lochia Color: Rubra/Red Perineum Description: Edematous Bladder Status: Voiding Urinary Elimination: Voided - Exam General: Alert Lungs: Normal Respiratory Effort Cardiovascular: Regular Rate GI/Abdominal Exam: Soft Extremities: Normal Inspection, Normal Range of Motion, Non-Tender, No Pedal Edema Skin: Warm, Dry, Intact Neurological: No New Focal Deficit Psy/Mental Status: Normal Mood - Problem List Review Problem List Initiated/Reviewed/Updated: Yes - Assessment Assessment:: 20 year old PPD #1 s/p - Plan Plan:: Routine cares * Rh positive, rubella immune * GBS positive with allergy to Penicillin (rash), resistant to clindamycin; had reaction to IV vancomycin. * Encourage ambulation and fluid intake today * Regular diet as tolerated * PO pain medications PRN * Desires to start breast pumping today Anemia * Hgb 9.7 upon admission, 9.3 * Asymptomatic * PO iron ordered BID with meals Dispo: stable. Anticipate discharge 48hrs post delivery due to GBS positive status. Continue cares today.
[2020-10-06] MEDS: Docusate Sodium 100 MG Cap PO PRN (08:55)
[2020-10-06] MEDS: Ibuprofen 800 MG Tab PO PRN (08:56)
[2020-10-06] MEDS: Ferrous Sulfate 325 MG Tab PO SCH (23:45)
[2020-10-07] MEDS: Vancomycin 1.5 GM in Sodium Chloride 0.9% 500 ML IV SCH ×2 (07:13→07:14)
[2020-10-07] MEDS: Ferrous Sulfate 325 MG Tab PO SCH (08:57)
[2020-10-07] MEDS: Ibuprofen 800 MG Tab PO PRN (08:59)
--- NOTE | 2020-10-07 09:34 | PCM.PNPP ---
- General Info Date of Service: 10/07/20 Admission Dx/Problem (Free Text): Patient Status Order with Admit Dx/Problem 10/04/20 18:12 Patient Status [ADT] Routine Admission Diagnosis/Problem Admission Diagnosis/Problem Normal vaginal delivery Subjective Update: Patient doing denies any complains , has more success with , normal lochia . Functional Status: Reports: Pain Controlled, Tolerating Diet, Ambulating, Urinating - Review of Systems General: Reports: No Symptoms HEENT: Reports: No Symptoms Pulmonary: Reports: No Symptoms Cardiovascular: Reports: No Symptoms Gastrointestinal: Reports: No Symptoms Genitourinary: Reports: No Symptoms Musculoskeletal: Reports: No Symptoms Skin: Reports: No Symptoms Neurological: Reports: No Symptoms Psychiatric: Reports: No Symptoms - General Info Date of Service: 10/07/20 - Patient Data Vital Signs - Most Recent: Last Vital Signs Temp 36.5 C 10/07/20 09:00 Pulse 93 10/07/20 09:00 Resp 17 10/07/20 09:00 BP 119/66 10/07/20 09:00 Pulse Ox 98 10/07/20 09:00 Weight - Most Recent: 72.121 kg Lab Results - Last 24 Hours: Laboratory Results - last 24 hr 10/04/20 Range/Units 18:00 RPR Non-Reac (Non-Reac) Med Orders - Current: Current Medications Acetaminophen (Acetaminophen 500 Mg Tab) 500 mg PO Q4H PRN PRN Reason: Pain Acetaminophen (Acetaminophen 500 Mg Tab) 1,000 mg PO Q4H PRN PRN Reason: Pain Benzocaine/Menthol (Benzocaine/Menthol 20%-0.5% [place] 78 Gm Cannister) 78 gm TOP ASDIRECTED PRN PRN Reason: Perineal Comfort Measure Last Admin: 10/05/20 20:53 Dose: 1 spray Documented by: Bisacodyl (Bisacodyl 10 Mg Supp) 10 mg RECTAL ONETIME PRN PRN Reason: Constipation Diphenhydramine HCl (Diphenhydramine 50 Mg Cap) 50 mg PO BEDTIME PRN PRN Reason: Itching Last Admin: 10/04/20 22:59 Dose: 50 mg Documented by: Docusate Sodium (Docusate Sodium 100 Mg Cap) 100 mg PO BID PRN PRN Reason: Constipation Last Admin: 10/06/20 08:55 Dose: 100 mg Documented by: Emollient Ointment (Lanolin 100% Cream 7 Gm Tube) 0 gm TOP ASDIRECTED PRN PRN Reason: Sore Nipples Last Admin: 10/05/20 20:53 Dose: 1 gm Documented by: Ferrous Sulfate (Ferrous Sulfate 325 Mg Tab) 325 mg PO BIDMEALS [facility] Last Admin: 10/07/20 08:57 Dose: 325 mg Documented by: Oxytocin/Sodium Chloride (Oxytocin 30 Unit/500 Ml-Ns) 30 unit in 500 mls @ 2 mls/hr IV TITRATE [facility]; Protocol Last Titration: 10/05/20 17:40 Dose: 2 munits/min, 2 mls/hr Documented by: Vancomycin HCl 1.5 gm/ Sodium (Chloride) 500 mls @ 333.333 mls/hr IV Q24H [facility] Last Admin: 10/07/20 07:14 Dose: Not Given Documented by: Ibuprofen (Ibuprofen 400 Mg Tab) 400 mg PO Q4H PRN PRN Reason: Pain Ibuprofen (Ibuprofen 800 Mg Tab) 800 mg PO Q6H PRN PRN Reason: Pain Last Admin: 10/07/20 08:59 Dose: 800 mg Documented by: Misoprostol (Misoprostol 25 Mcg (1/4 Of 100 Mcg) Tab) 25 mcg VAG ONETIME PRN PRN Reason: Cervical Ripening Last Admin: 10/05/20 04:32 Dose: 25 mcg Documented by: Misoprostol (Misoprostol 25 Mcg (1/4 Of 100 Mcg) Tab) 25 mcg VAG Q4H PRN PRN Reason: Cervical Ripening Last Admin: 10/05/20 00:39 Dose: 25 mcg Documented by: Oxycodone HCl (Oxycodone 5 Mg Tab) 5 mg PO Q2H PRN PRN Reason: Pain Sodium Chloride (Sodium Chloride 0.9% 10 Ml Syringe) 10 ml FLUSH ASDIRECTED PRN PRN Reason: Keep Vein Open Sodium Chloride (Sodium Chloride 0.9% 2.5 Ml Syringe) 2.5 ml FLUSH ASDIRECTED PRN PRN Reason: Keep Vein Open Sodium Chloride (Sodium Chloride 0.9% 10 Ml Sdv) 10 ml IV ASDIRECTED PRN PRN Reason: IV Use Terbutaline Sulfate (Terbutaline 1 Mg/Ml Sdv) 0.25 mg SUBCUT ASDIRECTED PRN PRN Reason: Tacysystole Vancomycin HCl (Pharmacy To Dose - Vancomycin) 1 dose .XX Q8H [facility] Last Admin: 10/07/20 07:12 Dose: Not Given Documented by: Bakari Stallings (Bakari Stallings Medicated Pads 40/Jar) 1 pad TOP ASDIRECTED PRN PRN Reason: comfort care Last Admin: 10/05/20 20:54 Dose: 1 pad Documented by: Discontinued Medications Butorphanol Tartrate (Butorphanol 1 Mg/Ml Sdv) 1 mg IVPUSH Q1H PRN PRN Reason: Pain Carboprost Tromethamine (Carboprost Tromethamine 250 Mcg/1 Ml Amp) 250 mcg IM ASDIRECTED PRN PRN Reason: Post Hemorrhage Fentanyl (Fentanyl 100 Mcg/2 Ml Sdv) Confirm Administered Dose 100 mcg .ROUTE .[employer] ONE Stop: 10/05/20 12:23 Last Admin: 10/07/20 07:13 Dose: Not Given Documented by: Oxytocin/Sodium Chloride (Oxytocin 30 Unit/500 Ml-Ns) 30 unit in 500 mls @ 500 mls/hr IV TITRATE [facility] Tranexamic Acid 1,000 mg/ (Sodium Chloride) 110 mls @ 660 mls/hr IV ONETIME PRN PRN Reason: Bleeding Lactated Ringer's (Ringers, Lactated) 1,000 mls @ 150 mls/hr IV ASDIRECTED [facility] Last Admin: 10/05/20 17:44 Dose: 150 mls/hr Documented by: Vancomycin HCl 1 gm/ Sodium (Chloride) 250 mls @ 166.667 mls/hr IV Q8H [facility] Vancomycin HCl 1.5 gm/ Sodium (Chloride) 500 mls @ 333.333 mls/hr IV Q8H [facility] Last Admin: 10/07/20 07:15 Dose: Not Given Documented by: Vancomycin HCl 1.5 gm/ Sodium (Chloride) 250 mls @ 166.667 mls/hr IV Q8H [facility] Stop: 10/04/20 22:44 Last Admin: 10/04/20 21:46 Dose: 166.667 mls/hr Documented by: Oxytocin/Sodium Chloride (Oxytocin 30 Unit/500 Ml-Ns) Confirm Administered Dose 30 unit in 500 mls @ as directed .ROUTE .[employer] ONE Stop: 10/05/20 08:07 Last Admin: 10/07/20 07:13 Dose: Not Given Documented by: Fentanyl/Bupivacaine HCl (Fentanyl/Bupivacaine/Ns 2 Mcg-0.125% 250 Ml) Confirm Administered Dose 250 mls @ as directed .ROUTE .[employer] ONE Stop: 10/05/20 12:24 Last Admin: 10/07/20 07:13 Dose: Not Given Documented by: Lidocaine HCl (Lidocaine 1% 50 Ml Mdv) 50 ml INJECT ONETIME PRN PRN Reason: Laceration repair Lidocaine HCl (Lidocaine 1% 50 Ml Mdv) Confirm Administered Dose 50 ml .ROUTE .[employer] ONE Stop: 10/05/20 18:31 Last Admin: 10/07/20 07:13 Dose: Not Given Documented by: Methylergonovine Maleate (Methylergonovine 0.2 Mg/1 Ml Amp) 0.2 mg IM ASDIRECTED PRN PRN Reason: Post Hemorrhage Misoprostol (Misoprostol 200 Mcg Tab) 200 mcg PO ONETIME PRN PRN Reason: Post Hemorrhage Nalbuphine HCl (Nalbuphine 10 Mg/1 Ml Vial) 10 mg IVPUSH Q1H PRN PRN Reason: Pain (severe 7-10) Sterile Water (Water For Irrigation,Sterile 1,000 Ml Container) 1,000 ml IRR A SDIRECTED PRN PRN Reason: delivery - Infant Interaction Disposition, : in Room with Family Infant Feeding: Attempted ; Nursed Fair/Poor, Bottle Fed Support Person: Significant Other - Recovery Exam Fundal Tone: Firm Fundal Level: 2 Fingerbreadths Below Umbilicus Fundal Placement: Midline Lochia Amount: Scant Lochia Color: Rubra/Red Perineum Description: Edematous Episiotomy/Laceration: Approximated Bladder Status: Voiding Urinary Elimination: Voided - Exam General: Alert HEENT: Pupils Equal Lungs: Clear to Auscultation, Normal Respiratory Effort Cardiovascular: Regular Rate, Regular Rhythm GI/Abdominal Exam: Normal Bowel Sounds Extremities: Normal Inspection Neurological: No New Focal Deficit - Problem List & Annotations (1) Vaginal delivery SNOMED Code(s): 164593683 Code(s): O80 - ENCOUNTER FOR FULL-TERM UNCOMPLICATED DELIVERY Status: Acute Current Visit: Yes - Problem List Review Problem List Initiated/Reviewed/Updated: Yes - Assessment Assessment:: 20 year old P1 PPD #2 s/p , stable - Plan Plan:: Routine cares * Rh positive, rubella immune * GBS positive with allergy to Penicillin (rash), resistant to clindamycin; had reaction to IV vancomycin. * Encourage ambulation and fluid intake today * Regular diet as tolerated * Anemia * Hgb 9.7 upon admission, 9.3 * Asymptomatic * Iron and PNV at home Dispo: Home today
== END 2020-10-07 18:30 | disposition home or self-care (01) | DRG 807 ==
LOC: MW.OB 16:59 → MW.OBCHECK 16:59 → MW.OB 18:11 → OBSVTOIN 10-05 19:05 → MW.OB 10-05 23:27
PROVIDERS: ADMIT Obstetrics & Gynecology; ATTEND Obstetrics & Gynecology
PROC: 10E0XZZ Delivery of Products of Conception, External Approach (ICD-10-PCS; principal; 2020-10-05)
PROC: 10907ZC Drainage of Amniotic Fluid, Therapeutic from Products of Conception, Via Natural or Artificial Opening (ICD-10-PCS; 2020-10-05)
PROC: 3E0R3BZ Introduction of Anesthetic Agent into Spinal Canal, Percutaneous Approach (ICD-10-PCS; 2020-10-05)
PROC: 00HU33Z Insertion of Infusion Device into Spinal Canal, Percutaneous Approach (ICD-10-PCS; 2020-10-05)
PROC: 0W8NXZZ Division of Female Perineum, External Approach (ICD-10-PCS; 2020-10-05)
DX: O36.5930 Maternal care for other known or suspected poor fetal growth, third trimester, not applicable or unspecified (principal); Z37.0 Single live birth; O99.824 Streptococcus B carrier state complicating childbirth; Z3A.38 38 weeks gestation of pregnancy; O69.81X0 Labor and delivery complicated by cord around neck, without compression, not applicable or unspecified; O99.02 Anemia complicating childbirth; D64.9 Anemia, unspecified
CPT/HCPCS: 36415; 59025; 59409; 82803; 85014; 85018; 85027; 86592; 86850; 86900; 86901; A9270-GY; J2001; J2590; J3010; J3370; J7050; J7120

== ENCOUNTER 2022-05-18 00:01 | Inpatient (IN) | payer MEDICAID ==
[2022-05-18] MEDS ORDERED: Misoprostol 200 MCG Tab PO PRN (00:38)
[2022-05-18] MEDS ORDERED: Tranexamic Acid 1,000 MG in Sodium Chloride 0.9% 100 ML IV PRN (00:38)
[2022-05-18] MEDS ORDERED: Water For Irrigation,Sterile 1,000 ML Container IRR PRN (00:38)
[2022-05-18] MEDS ORDERED: Terbutaline 1 MG/ML SDV SUBCUT PRN (00:38)
[2022-05-18] MEDS ORDERED: Lidocaine 1% 50 ML MDV INJECT PRN (00:38)
[2022-05-18] MEDS ORDERED: Ondansetron 4 MG/2 ML SDV IVPUSH PRN (00:38)
[2022-05-18] MEDS ORDERED: Methylergonovine 0.2 MG/1 ML Amp IM PRN (00:38)
[2022-05-18] MEDS ORDERED: Sodium Chloride 0.9% 20 ML SDV IV PRN (00:38)
[2022-05-18] MEDS ORDERED: Carboprost Tromethamine 250 MCG/1 ML Amp IM PRN (00:38)
[2022-05-18] MEDS ORDERED: Butorphanol 1 MG/ML SDV IVPUSH PRN (00:38)
[2022-05-18] MEDS ORDERED: Sodium Chloride 0.9% 10 ML Syringe FLUSH PRN (00:38)
[2022-05-18] MEDS ORDERED: Sodium Chloride 0.9% 2.5 ML Syringe FLUSH PRN (00:38)
[2022-05-18] MEDS ORDERED: Oxytocin/0.9 % Sodium Chloride 30 UNIT/500 ML BAG IV SCH ×2 (00:45)
[2022-05-18] MEDS ORDERED: Misoprostol 25 MCG (1/4 of 100 MCG) Tab VAG PRN ×2 (01:00→05:00)
[2022-05-18] MEDS ORDERED: Vancomycin 1.5 GM in Sodium Chloride 0.9% 500 ML IV SCH (01:00)
[2022-05-18] MEDS: Lactated Ringers 1,000 ML IV SCH ×3 (01:34→14:17)
[2022-05-18] MEDS ORDERED: diphenhydrAMINE 50 MG/ML SDV IVPUSH ONE (03:17)
[2022-05-18] MEDS ORDERED: ceFAZolin 2 GM in Premix Bag 1 BAG IV ONE (10:15)
[2022-05-18] MEDS ORDERED: Ropivacaine/PF 400 MG/200 ML PCA ONE (14:43)
[2022-05-18] MEDS ORDERED: Dexmedetomidine 200 MCG/2 ML SDV ONE (14:54)
[2022-05-18] MEDS ORDERED: ePHEDrine 50 MG/ML SDV IVPUSH PRN (15:08)
[2022-05-18] MEDS ORDERED: Ropivacaine HCl/PF 400 MG in Premix Bag 1 BAG EPIDUR SCH (15:15)
[2022-05-18] MEDS ORDERED: Phenylephrine HCl In 0.9% NaCl 1 MG/10 ML Vial IVPUSH SCH (15:15)
[2022-05-18] MEDS ORDERED: Lanolin 100% Cream 7 GM Tube TOP PRN (17:15)
[2022-05-18] MEDS ORDERED: Acetaminophen 500 MG Tab PO PRN (17:15)
[2022-05-18] MEDS ORDERED: Docusate Sodium 100 MG Cap PO PRN (17:15)
[2022-05-18] MEDS ORDERED: oxyCODONE 5 MG Tab PO PRN (17:15)
[2022-05-18] MEDS ORDERED: Ibuprofen 400 MG Tab PO PRN (17:15)
[2022-05-18] MEDS ORDERED: Benzocaine/Menthol 20%-0.5% Spray 78 GM Cannister TOP PRN (17:15)
[2022-05-18] MEDS ORDERED: Witch Hazel Medicated Pads 40/Jar TOP PRN (17:15)
[2022-05-18] MEDS ORDERED: Bisacodyl 10 MG Supp RECTAL PRN (17:15)
[2022-05-18] MEDS: Ibuprofen 800 MG Tab PO PRN (21:33)
[2022-05-19] MEDS: Acetaminophen 500 MG Tab PO PRN ×2 (03:06→09:02)
[2022-05-19] MEDS: Ibuprofen 800 MG Tab PO PRN (09:02)
== END 2022-05-19 20:55 | disposition home or self-care (01) | DRG 807 ==
LOC: MW.OB 00:01 → MW.OBCHECK 00:01 → MW.OB 00:38 → MW.OBCHECK 00:38 → OBSVTOIN 16:40 → MW.OB 21:12
PROVIDERS: ADMIT Obstetrics & Gynecology; ATTEND Obstetrics & Gynecology
PROC: 10E0XZZ Delivery of Products of Conception, External Approach (ICD-10-PCS; principal; 2022-05-18)
PROC: 3E0P7VZ Introduction of Hormone into Female Reproductive, Via Natural or Artificial Opening (ICD-10-PCS; 2022-05-18)
PROC: 3E0R3BZ Introduction of Anesthetic Agent into Spinal Canal, Percutaneous Approach (ICD-10-PCS; 2022-05-18)
PROC: 0HQ9XZZ Repair Perineum Skin, External Approach (ICD-10-PCS; 2022-05-18)
DX: O36.5930 Maternal care for other known or suspected poor fetal growth, third trimester, not applicable or unspecified (principal); Z37.0 Single live birth; Z3A.37 37 weeks gestation of pregnancy; O99.824 Streptococcus B carrier state complicating childbirth; O70.0 First degree perineal laceration during delivery; O99.344 Other mental disorders complicating childbirth; F41.9 Anxiety disorder, unspecified
CPT/HCPCS: 01967; 36415; 51702; 59025; 59409; 82803; 85014; 85018; 85027; 86592; 86850; 86900; 86901; A9270-GY; J0690; J1200; J2590; J2795; J3370; J7040; J7120; U0002